=== PATIENT | female | born 1965 | race Caucasian/White ===

== ENCOUNTER 2018-01-29 15:07 | Inpatient (IN) | payer BC ==
[~2018-01-29] VITALS: Ht 167.6 cm; Wt 71.1 kg
[2018-01-29 17:11] VITALS: BP 135/83; PULSE 89; TEMP 98.8
[2018-01-29] MEDS ORDERED: B COMPLEX & B121 TAB PO (17:25)
[2018-01-29] MEDS ORDERED: HCTZ 25MG TAB25 MG PO (17:27)
[2018-01-29] MEDS ORDERED: SINGULAIR 110 MG/TAB PO (17:28)
[2018-01-29] MEDS ORDERED: ZYRTEC-D 5 MG-11 TER PO (17:29)
[2018-01-29] MEDS ORDERED: DOXYCYCLINE HY100 MG PO ×2 (17:37→18:08)
[2018-01-29] MEDS ORDERED: CALCIUM/MAGNESI1 T13 PO (17:48)
[2018-01-29] MEDS ORDERED: PROAIR HFA0.09 MG/AC IH (17:50)
[2018-01-29] MEDS ORDERED: FLOVENT 44MCG I13 GM IH (17:51)
[2018-01-29] MEDS ORDERED: KELP1 TAB (18:03)
[2018-01-29] MEDS ORDERED: LYRICA 50MG CAP50 MG PO (18:04)
[2018-01-29] MEDS ORDERED: LYRICA 100MG C100 M1 PO (18:06)
[2018-01-30] MEDS ORDERED: ZOFRAN ODT4 MG PO (05:03)
[2018-01-30 06:00] VITALS: BP 126/85; PULSE 105; TEMP 99.8
[2018-01-30 18:37] VITALS: BP 131/81; PULSE 110; TEMP 99.2
[2018-01-31 06:00] VITALS: BP 123/75; PULSE 90; TEMP 98.4
[2018-01-31 06:33] LABS: BASO % 1.2 % (0.0-2.0); EOS # 0.1 (0.0-0.7); EOS % 3.6 % (0-4.0); GRAN # 1.5 (1.4-6.5); GRAN % 46.4 % (42.2-75.2); HEMOGLOBIN 12.3 g/dl (12.5-16.0); LYMPH # 1.2 (1.2-3.4); LYMPH % 35.5 % (20.0-51.0); MEAN CELL VOLUME 83 fl (80.0-100.0); MEAN CORPUSCULAR HEMOGLOBIN 28 pg (27.0-31.0); MEAN CORPUSCULAR HGB CONC 34 g/dl (33.0-37.0); MEAN PLATELET VOLUME 9.8 fl (7.4-10.4); MONO # 0.4 (0.1-0.6); PLATELET COUNT 180 K/mm3 (130-400); RED BLOOD COUNT 4.33 M/mm3 (4.10-5.30); REDCELL DISTRIBUTION WIDTH-CV 12.8 % (11.5-14.5)
[2018-01-31 06:56] LABS: ALBUMIN 3.5 gm/dL (3.5-5.0); BILIRUBIN,TOTAL 0.3 mg/dL (0.0-1.0); CALCIUM 8.7 mg/dL (8.4-10.2); CREATININE, serum 0.65 mg/dL (0.52-1.25); POTASSIUM 3.5 mmol/L (3.4-5.0)
[2018-01-31 18:00] VITALS: BP 139/90; PULSE 94; TEMP 98.8
[2018-01-31 19:57] LABS: PH 6 (5-8); SQUAMOUS EPITHELIAL 0-2 /hpf; URINE APPEARANCE Clear; URINE BACTERIA Rare /hpf; URINE BILIRUBIN Negative (NEGATIVE); URINE BLOOD Negative (NEGATIVE); URINE COLOR Straw; URINE GLUCOSE Negative (NEGATIVE); URINE KETONE Negative (NEGATIVE); URINE LEUKOCYTE ESTERASE 1+ (NEGATIVE); URINE NITRATE Negative (NEGATIVE); URINE PROTEIN(semi-quant) Negative (NEGATIVE); URINE RBC 0-2 /hpf; URINE UROBILINOGEN Negative (NEGATIVE)
[2018-01-31 20:09] LABS: COLLECTION METHOD CLEAN CATCH
[2018-02-01 05:51] VITALS: BP 118/76; PULSE 107; TEMP 98.4
[2018-02-01 16:43] VITALS: BP 112/70; PULSE 97; TEMP 98.8
[2018-02-02 05:33] VITALS: BP 104/68; PULSE 81; TEMP 97.8
[2018-02-02 16:50] VITALS: BP 127/72; PULSE 76; TEMP 98.1
[2018-02-03 06:00] VITALS: BP 104/67; PULSE 80; TEMP 97.8
[2018-02-03 17:26] VITALS: BP 129/78; PULSE 75; TEMP 97.9
[2018-02-04 05:32] VITALS: BP 106/63; PULSE 82; TEMP 98.6
[2018-02-04 18:13] VITALS: BP 122/80; PULSE 93; TEMP 99.2
[2018-02-05 06:33] VITALS: BP 122/79; PULSE 87; TEMP 98.8
[2018-02-05 06:58] LABS: BASO # 0.1 (0.0-0.2); BASO % 1.5 % (0.0-2.0); EOS # 0.1 (0.0-0.7); GRAN # 1.6 (1.4-6.5); GRAN % 47.1 % (42.2-75.2); LYMPH # 1.3 (1.2-3.4); LYMPH % 38.9 % (20.0-51.0); MEAN CELL VOLUME 84 fl (80.0-100.0); MEAN CORPUSCULAR HEMOGLOBIN 28 pg (27.0-31.0); MEAN CORPUSCULAR HGB CONC 33 g/dl (33.0-37.0); MEAN PLATELET VOLUME 10.1 fl (7.4-10.4); MONO # 0.3 (0.1-0.6); MONO % 7.9 % (1.7-9.3); PLATELET COUNT 198 K/mm3 (130-400); RED BLOOD COUNT 4.29 M/mm3 (4.10-5.30); REDCELL DISTRIBUTION WIDTH-CV 12.8 % (11.5-14.5)
[2018-02-05 06:59] LABS: HEMATOCRIT 36.1 % (37.0-47.0)
[2018-02-05 07:14] LABS: ALBUMIN 3.8 gm/dL (3.5-5.0); BILIRUBIN,TOTAL 0.3 mg/dL (0.0-1.0); CALCIUM 8.8 mg/dL (8.4-10.2); CREATININE, serum 0.73 mg/dL (0.52-1.25); POTASSIUM 3.6 mmol/L (3.4-5.0); TOTAL PROTEIN 8.1 gm/dL (6.4-8.2)
[2018-02-05 07:36] LABS: MAGNESIUM 1.9 mg/dL (1.6-2.3)
[2018-02-05 16:07] VITALS: BP 109/66; BP 144/66; PULSE 78; PULSE 88; TEMP 98.2; TEMP 98.4
[2018-02-05 18:00] VITALS: BP 109/66; PULSE 68; TEMP 97.8
[2018-02-06 06:00] VITALS: BP 108/62; PULSE 68; TEMP 97.7
[2018-02-06 16:15] VITALS: BP 138/63; BP 138/96; PULSE 75; PULSE 83; TEMP 98; TEMP 98.2
[2018-02-06 20:02] VITALS: BP 124/76; PULSE 76; TEMP 98
[2018-02-07 05:23] VITALS: BP 112/80; PULSE 84; TEMP 97.7
[2018-02-07 16:49] VITALS: BP 117/67; PULSE 71; TEMP 97.7
[2018-02-08 06:00] VITALS: BP 90/57; PULSE 84; TEMP 98.2
[2018-02-08 09:30] VITALS: BP 117/80; PULSE 80; TEMP 97.5
[2018-02-08 10:24] LABS: ALBUMIN 3.4 gm/dL (3.5-5.0); BILIRUBIN,TOTAL 0.2 mg/dL (0.0-1.0); CALCIUM 8.7 mg/dL (8.4-10.2); CREATININE, serum 0.76 mg/dL (0.52-1.25); POTASSIUM 4.1 mmol/L (3.4-5.0); TOTAL PROTEIN 7.1 gm/dL (6.4-8.2)
[2018-02-08 10:45] LABS: HEMOGLOBIN 11.4 g/dl (12.5-16.0); MEAN CELL VOLUME 85 fl (80.0-100.0); MEAN CORPUSCULAR HEMOGLOBIN 28 pg (27.0-31.0); MEAN CORPUSCULAR HGB CONC 33 g/dl (33.0-37.0); MEAN PLATELET VOLUME 9.8 fl (7.4-10.4); PLATELET COUNT 200 K/mm3 (130-400); RED BLOOD COUNT 4.07 M/mm3 (4.10-5.30); REDCELL DISTRIBUTION WIDTH-CV 13.2 % (11.5-14.5)
[2018-02-08 10:51] LABS: HEMATOCRIT 34.6 % (37.0-47.0)
[2018-02-08 11:51] LABS: BAND 19 % (0-10); EOSINOPHIL 1 % (0-4); LYMPHOCYTE 26 % (20.0-51.0); NEUTROPHILS 47 % (42.0-75.2)
[2018-02-08 11:52] LABS: PLATELET ESTIMATE NORMAL (NORMAL)
[2018-02-08 12:08] LABS: INR 0.9 (0.8-3.0); PROTHROMBIN TIME 10.6 SECONDS (9.7-12.8)
[2018-02-08 18:00] VITALS: BP 134/67; PULSE 72; TEMP 98.3
[2018-02-09 05:37] VITALS: BP 124/69; PULSE 60; TEMP 98
[2018-02-09 07:08] LABS: MEAN CELL VOLUME 87 fl (80.0-100.0); MEAN CORPUSCULAR HEMOGLOBIN 28 pg (27.0-31.0); MEAN CORPUSCULAR HGB CONC 33 g/dl (33.0-37.0); MEAN PLATELET VOLUME 10.3 fl (7.4-10.4); PLATELET COUNT 201 K/mm3 (130-400); RED BLOOD COUNT 3.87 M/mm3 (4.10-5.30); REDCELL DISTRIBUTION WIDTH-CV 13.2 % (11.5-14.5)
[2018-02-09 07:10] LABS: PROTHROMBIN TIME 10.8 SECONDS (9.7-12.8)
[2018-02-09 07:17] LABS: HEMATOCRIT 33.5 % (37.0-47.0)
[2018-02-09 07:22] LABS: BILIRUBIN,TOTAL 0.2 mg/dL (0.0-1.0); CALCIUM 8.3 mg/dL (8.4-10.2); CREATININE, serum 0.72 mg/dL (0.52-1.25); MAGNESIUM 2.1 mg/dL (1.6-2.3); POTASSIUM 3.8 mmol/L (3.4-5.0); TOTAL PROTEIN 6.4 gm/dL (6.4-8.2)
[2018-02-09 08:42] LABS: BAND 2 % (0-10); BASOPHIL 2 % (0-2); EOSINOPHIL 3 % (0-4); LYMPHOCYTE 36 % (20.0-51.0); NEUTROPHILS 55 % (42.0-75.2); PLATELET ESTIMATE NORMAL (NORMAL)
[2018-02-09 13:24] LABS: MUCOUS Present /lpf; PH 5 (5-8); URINE APPEARANCE Hazy; URINE BACTERIA None Seen /hpf; URINE BILIRUBIN Negative (NEGATIVE); URINE BLOOD Negative (NEGATIVE); URINE COLOR Yellow; URINE GLUCOSE Negative (NEGATIVE); URINE KETONE Negative (NEGATIVE); URINE LEUKOCYTE ESTERASE 2+ (NEGATIVE); URINE NITRATE Negative (NEGATIVE); URINE PROTEIN(semi-quant) Negative (NEGATIVE); URINE RBC 0-2 /hpf; URINE UROBILINOGEN Negative (NEGATIVE)
[2018-02-09 13:43] LABS: COLLECTION METHOD CLEAN CATCH
[2018-02-09 15:35] VITALS: BP 120/73; PULSE 64; TEMP 98.2
[2018-02-10 04:09] VITALS: BP 124/71; PULSE 59; TEMP 97.8
[2018-02-10 16:19] VITALS: BP 149/75; PULSE 66; TEMP 98.6
[2018-02-11 05:16] VITALS: BP 132/74; PULSE 66; TEMP 98.4
[2018-02-11 17:28] VITALS: BP 147/83; PULSE 87; TEMP 98.4
[2018-02-12 05:18] VITALS: BP 142/84; PULSE 62; TEMP 98.4
[2018-02-12 07:24] LABS: HEMATOCRIT 38.2 % (37.0-47.0); HEMOGLOBIN 12.7 g/dl (12.5-16.0); MEAN CELL VOLUME 84 fl (80.0-100.0); MEAN CORPUSCULAR HEMOGLOBIN 28 pg (27.0-31.0); MEAN CORPUSCULAR HGB CONC 33 g/dl (33.0-37.0); MEAN PLATELET VOLUME 9.9 fl (7.4-10.4); PLATELET COUNT 263 K/mm3 (130-400); RED BLOOD COUNT 4.53 M/mm3 (4.10-5.30); REDCELL DISTRIBUTION WIDTH-CV 13.2 % (11.5-14.5)
[2018-02-12 07:27] LABS: ALBUMIN 4.1 gm/dL (3.5-5.0); BILIRUBIN,TOTAL 0.4 mg/dL (0.0-1.0); CALCIUM 9.1 mg/dL (8.4-10.2); CREATININE, serum 0.69 mg/dL (0.52-1.25); MAGNESIUM 2.2 mg/dL (1.6-2.3); POTASSIUM 3.9 mmol/L (3.4-5.0); TOTAL PROTEIN 8.1 gm/dL (6.4-8.2)
[2018-02-12 08:09] LABS: BAND 1 % (0-10); BASOPHIL 1 % (0-2); EOSINOPHIL 1 % (0-4); LYMPHOCYTE 23 % (20.0-51.0); NEUTROPHILS 71 % (42.0-75.2); PLATELET ESTIMATE NORMAL (NORMAL)
[2018-02-12 15:24] VITALS: BP 138/84; PULSE 91; TEMP 98.2
[2018-02-13 06:25] VITALS: BP 119/78; PULSE 80; TEMP 98.2
[2018-02-13 16:26] VITALS: BP 141/83; PULSE 71; TEMP 98.6
[2018-02-14 06:04] VITALS: BP 117/76; PULSE 74; TEMP 97.9
[2018-02-14 16:32] VITALS: BP 151/88; PULSE 72; TEMP 98.1
[2018-02-15 05:01] VITALS: BP 125/80; PULSE 67; TEMP 98
[2018-02-15 15:38] VITALS: BP 137/93; PULSE 74; TEMP 97.9
[2018-02-16 05:30] VITALS: BP 147/82; PULSE 63; TEMP 98.6
[2018-02-16] MEDS ORDERED: ROBAXIN 75750 MG/TAB PO (09:03)
[2018-02-16] MEDS ORDERED: MOTRIN 600600 MG/TAB PO (09:03)
[2018-02-16] MEDS ORDERED: ZOFRAN 4MG T4 MG/TAB PO (09:04)
[2018-02-16] MEDS ORDERED: HCTZ12.5TAB PO (09:04)
== END 2018-02-16 13:40 | disposition home or self-care (01) | DRG 96 ==
PROVIDERS: Internal Medicine
DX: G61.0 Guillain-Barre syndrome (principal); I10 Essential (primary) hypertension; J45.909 Unspecified asthma, uncomplicated; R21 Rash and other nonspecific skin eruption; K59.00 Constipation, unspecified; D70.9 Neutropenia, unspecified; Z87.891 Personal history of nicotine dependence
CPT/HCPCS: 99222-AI; 99232-AI; 99233-AI; 99239; J0696; J1650; J2550; J7030

== ENCOUNTER → 2019-10-21 | Outpatient (CLI) | payer MEDICAID ==
[~2019-10-21] VITALS: Ht 167.6 cm; Wt 83.0 kg
[~2019-10-21] MED LIST: B COMPLEX #11 TA1 PO; B COMPLEX & B121 TAB PO; CALCIUM/MAGNESI1 T13 PO; CATAPRES 0.1MG0.1 MG PO; DOXYCYCLINE HY100 MG PO; FLOVENT 44MCG I13 GM IH; HCTZ 25MG TAB25 MG PO; HCTZ12.5TAB PO; K-DUR 10 MEQ T10 MEQ PO; KELP1 TAB; LASIX 20MG TABL20 MG PO; LYRICA 100MG C100 M1 PO; LYRICA 50MG CAP50 MG PO; MOTRIN 600600 MG/TAB PO; NORCO 325 MG-51 TAB PO; PROAIR HFA0.09 MG/AC IH; ROBAXIN 75750 MG/TAB PO; SELENIUM200 MC5 PO; SINGULAIR 110 MG/TAB PO; SYNTHROID0.112 MG/T PO; TOPROL XL 50MG50 MG PO; ZOFRAN 4MG T4 MG/TAB PO; ZOFRAN ODT4 MG PO; ZYRTEC-D 5 MG-11 TER PO
[2019-10-21 09:55] VITALS: BP 135/94; PULSE 78
[2019-10-21 11:53] VITALS: BP 170/102; PULSE 115
[2019-10-21 11:54] VITALS: BP 177/92; PULSE 112
[2019-10-21 11:55] VITALS: BP 147/74; PULSE 106
[2019-10-21 11:56] VITALS: BP 146/79; PULSE 99
== END ==
LOC: COL.CARD 09:31
DX: R07.9 Chest pain, unspecified (principal)
CPT/HCPCS: A9500; J2785